=== PATIENT | male | born 1975 | race Caucasian/White ===

== ENCOUNTER 2023-03-12 10:35 | Emergency (ER) | payer BC, SELFPAY ==
[2023-03-12 10:38] VITALS: BP 135/84; PULSE 60; RESP 18; TEMP 36.7; O2SAT 98; BMI 34.4
--- NOTE | 2023-03-12 11:22 | ED.GENADUL1 ---
HPI - General Adult General Chief complaint: Skin/Abscess/Foreign Body Stated complaint: CELLULITIS Time Seen by Provider: 03/12/23 11:06 Source: patient and family Mode of arrival: walk-in History of Present Illness HPI narrative: patient here is swelling of both his legs. Patient describes having this problem already starting back in November. He's been does primary care doctor and was started on an antibiotic but is not sure which one. He does have rheumatoid arthritis but is not on any immunosuppressive therapy at this time. He's also noticed that he continues to have swelling of his legs. He does not have any shortness of breath or any type of dyspnea with any type of exertion. He has no history of heart problems. He is on a number meds as listed on his medical record. He said at one stage when they were treating this they put him on Lasix. He currently is not on any Lasix or antibiotic therapy. He has not had fever shakes or chills. He's not wearing support stockings, he doesn't elevate his legs and he works in an upright position standing most the day. Related Data Home Medications Medication Instructions Recorded Confirmed allopurinol 100 mg tablet 100 mg PO QDAY 03/12/23 03/12/23 amlodipine 10 mg tablet 10 mg PO 03/12/23 lisinopril 10 mg tablet 10 mg PO QDAY 03/12/23 03/12/23 nabumetone 750 mg tablet 750 mg PO BID 03/12/23 03/12/23 Allergies Allergy/AdvReac Type Severity Reaction Status Date / Time PCN AdvReac Intermediate Uncoded 03/12/23 10:38 PFS PFS Social History Smoking status: Current every day smoker Exam Narrative Exam Narrative: awake alert pleasant vital signs are stable he's afebrile. He states his legs really have never gotten better since he started treating him multiple weeks ago. Problem focused examination The leg show very mild warmth with 2+ pitting edema below the knees. There is good vascular pulses. There is no venous cords or ropiness in the thigh or hamstring area. The catheter nontender. There is no open wounds there is no weeping tissue fluid. Constitutional Vital Signs, click to edit/add: Last Vital Signs Temp 98.1 F 03/12/23 10:38 Pulse 60 03/12/23 10:38 Resp 18 03/12/23 10:38 BP 135/84 03/12/23 10:38 Pulse Ox 98 03/12/23 10:38 Course Vital Signs Vital signs: Vital Signs Temperature 98.1 F 03/12/23 10:38 Pulse Rate 60 03/12/23 10:38 Respiratory Rate 18 03/12/23 10:38 Blood Pressure 135/84 03/12/23 10:38 Pulse Oximetry 98 03/12/23 10:38 Temperature 98.1 F 03/12/23 10:38 Pulse Rate 60 03/12/23 10:38 Respiratory Rate 18 03/12/23 10:38 Blood Pressure 135/84 03/12/23 10:38 Pulse Oximetry 98 03/12/23 10:38 Medical Decision Making MDM Narrative Medical decision making narrative: this has ongoing problems that never really cleared up. His is somewhat frustrated because he doesn't follow all instructions. We went through the treatment recommendations as noted below. He's not have to keep these elevated compression stockings Lasix to help get rid of some the excess fluid which is probably due to medications. In any she has primary care practitioner on Tuesday or Tuesday of this week. He should return should he develop fever or get worseand I also did a lung examination he had no wheezes rales or rhonchi. Heart sounds were also normal with no evidence of atrial fibrillation and his pulse oximetry is normal. Discharge Plan Discharge Chief Complaint: Skin/Abscess/Foreign Body Clinical Impression: Cellulitis Patient Disposition: Home, Self-Care Time of Disposition Decision: 11:25 Prescriptions / Home Meds: No Action allopurinol 100 mg tablet 100 mg PO QDAY amlodipine 10 mg tablet 10 mg PO lisinopril 10 mg tablet 10 mg PO QDAY nabumetone 750 mg tablet 750 mg PO BID Additional Instructions: Lasix/doxycycline/cephalexin Stand Alone Forms: Portal Instructions Referrals: Physician,Non-Staff, MD [Primary Care Provider] - 1 week
== END 2023-03-12 11:31 | disposition home or self-care (01) ==
PROVIDERS: Emergency Provider Emergency Medicine Emergency Medical Services
DX: L03.116 Cellulitis of left lower limb (principal); L03.115 Cellulitis of right lower limb; M06.9 Rheumatoid arthritis, unspecified; Z79.899 Other long term (current) drug therapy; F17.210 Nicotine dependence, cigarettes, uncomplicated
CPT/HCPCS: 99283

== ENCOUNTER 2023-04-04 11:58 | Outpatient (OUT) | payer BC, SELFPAY ==
[2023-04-04 12:22] LABS: Basophils Absolute Auto 0.1 10^3/uL (0.0-0.1); Basophils Percent Auto 1.1 % (0.2-2.0); Eosinophils Absolute Auto 0.2 10^3/uL (0.0-0.7); Hemoglobin 13.8 g/dL (14.0-18.0); Immature Granulocytes Abs Auto 0.03 10^3/uL (0.00-0.03); Immature Granulocytes Pct Auto 0.4 % (0.0-0.5); Lymphocytes Absolute Auto 1.9 10^3/uL (1.2-3.8); Mean Corpuscular HGB Conc 33.7 g/dL (29.9-35.2); Mean Corpuscular Hemoglobin 32.4 pg (25.9-34.0); Mean Corpuscular Volume 96.2 fL (80.0-94.0); Mean Platelet Volume 9.9 fL (9.5-13.5); Monocytes Absolute Auto 0.4 10^3/uL (0.3-0.8); Monocytes Percent Auto 5.5 % (1.7-12.0); Neutrophils Absolute Auto 4.8 10^3/uL (1.4-6.5); Platelet Count 228 10^3/uL (150-450); Red Blood Count 4.26 10^6/uL (4.70-6.10); Red Cell Distribution Width 13.6 % (11.0-15.0); White Blood Count 7.4 10^3/uL (4.0-11.0)
[2023-04-04 13:12] LABS: Estimated Average Glucose 103 mg/dL; Glycohemoglobin A1C 5.2 % (4.5-6.2)
[2023-04-04 13:49] LABS: Alanine Aminotransferase 38 U/L (16-63); Albumin Globulin Ratio 1.1; Albumin Level 4.2 g/dL (3.4-5.0); Alkaline Phosphatase 105 U/L (46-116); Anion Gap 9.9; Aspartate Amino Transferase 18 U/L (15-37); Bilirubin Total 0.4 mg/dL (0.2-1.0); Calcium 8.8 mg/dL (8.5-10.1); Carbon Dioxide 29.2 mmol/L (21.0-32.0); Chloride 102 mmol/L (98-107); Chol HDL Ratio 4.9; Cholesterol 181 mg/dL (<=200); Estimated GFR (African America >60 (>=60); Estimated GFR (Non-African Ame >60 (>=60); Free T3 2.01 pg/mL (2.18-3.98); Globulin 3.7 g/dL; Glucose 100 mg/dL (74-106); HDL Cholesterol 37 mg/dL (40-60); Potassium 4.1 mmol/L (3.5-5.1); Sodium 137 mmol/L (136-145); Thyroid Stimulating Hormone 2.138 uIU/mL (0.358-3.740); Total Protein 7.9 g/dL (6.4-8.2); Triglycerides 191 mg/dL (<=150); Uric Acid 4.3 mg/dL (3.5-7.2); VLDL CHOLESTEROL 38.2 mg/dL
[2023-04-05 11:09] LABS: Insulin 6.7 uIU/mL (2.6-24.9)
== END 2023-04-04 11:59 | disposition home or self-care (01) ==
LOC: LAB 11:59
PROVIDERS: Visit Provider Nurse Practitioner Family
DX: Z00.00 Encounter for general adult medical examination without abnormal findings (principal)
CPT/HCPCS: 36415; 80053; 80061; 83036; 83525; 84436; 84443; 84481; 84550; 85025

== ENCOUNTER 2023-05-09 14:54 | Outpatient (OUT) | payer BC, SELFPAY ==
[2023-05-09 15:19] LABS: Basophils Absolute Auto 0.1 10^3/uL (0.0-0.1); Basophils Percent Auto 0.6 % (0.2-2.0); Eosinophils Absolute Auto 0.1 10^3/uL (0.0-0.7); Hematocrit 40.8 % (42.0-54.0); Hemoglobin 13.4 g/dL (14.0-18.0); Immature Granulocytes Abs Auto 0.07 10^3/uL (0.00-0.03); Immature Granulocytes Pct Auto 0.7 % (0.0-0.5); Lymphocytes Absolute Auto 2.8 10^3/uL (1.2-3.8); Lymphocytes Percent Auto 27.3 % (20.5-60.0); Mean Corpuscular HGB Conc 32.8 g/dL (29.9-35.2); Mean Corpuscular Hemoglobin 31.7 pg (25.9-34.0); Mean Corpuscular Volume 96.5 fL (80.0-94.0); Mean Platelet Volume 10.2 fL (9.5-13.5); Monocytes Absolute Auto 0.6 10^3/uL (0.3-0.8); Monocytes Percent Auto 5.7 % (1.7-12.0); Neutrophils Absolute Auto 6.6 10^3/uL (1.4-6.5); Neutrophils Percent Auto 64.7 % (43.0-75.0); Platelet Count 235 10^3/uL (150-450); Red Blood Count 4.23 10^6/uL (4.70-6.10); Red Cell Distribution Width 13.3 % (11.0-15.0); White Blood Count 10.3 10^3/uL (4.0-11.0)
[2023-05-09 15:23] LABS: Estimated Average Glucose 114 mg/dL; Glycohemoglobin A1C 5.6 % (4.5-6.2)
[2023-05-09 15:38] LABS: Alanine Aminotransferase 55 U/L (16-63); Albumin Globulin Ratio 1.3; Albumin Level 4.1 g/dL (3.4-5.0); Alkaline Phosphatase 87 U/L (46-116); Anion Gap 11.7; Aspartate Amino Transferase 26 U/L (15-37); BUN Creatinine Ratio 28.9; Bilirubin Total 0.6 mg/dL (0.2-1.0); Calcium 8.8 mg/dL (8.5-10.1); Carbon Dioxide 33.2 mmol/L (21.0-32.0); Chloride 98 mmol/L (98-107); Chol HDL Ratio 4.2; Cholesterol 205 mg/dL (<=200); Estimated GFR (African America >60 (>=60); Estimated GFR (Non-African Ame >60 (>=60); Free T3 2.35 pg/mL (2.18-3.98); Globulin 3.2 g/dL; Glucose 89 mg/dL (74-106); HDL Cholesterol 49 mg/dL (40-60); Potassium 3.9 mmol/L (3.5-5.1); Sodium 139 mmol/L (136-145); Total Protein 7.3 g/dL (6.4-8.2); Triglycerides 132 mg/dL (<=150); Uric Acid 5.3 mg/dL (3.5-7.2); VLDL CHOLESTEROL 26.4 mg/dL
[2023-05-10 13:10] LABS: Insulin 8.5 uIU/mL (2.6-24.9)
== END 2023-05-09 14:55 | disposition home or self-care (01) ==
LOC: LAB 14:54
PROVIDERS: Visit Provider Nurse Practitioner Family
DX: Z00.00 Encounter for general adult medical examination without abnormal findings (principal); R60.0 Localized edema
CPT/HCPCS: 36415; 80053; 80061; 83036; 83525; 84436; 84443; 84481; 84550; 85025

== ENCOUNTER 2023-05-18 13:57 | Outpatient (OUT) | payer BC, SELFPAY ==
--- NOTE | 2023-05-18 14:04 | US_ITS ---
The [address] [address] Patient Name: ROSARIO CROUCH MRN: [id number] date: 1975 Sex: M Assigned Patient Location: US Current Patient Location: Accession/Order Number: [id number] Exam Date: 05/18/2023 14:05 Report Date: 05/19/2023 02:51 At the request of: NON-STAFF PHYSICIAN Procedure: US venous doppler LE BI EXAMINATION: US venous doppler LE BI HISTORY: Lower Extremity Edema R60.0 COMPARISON: No relevant comparison available. FINDINGS: REGION: Bilateral lower extremities THROMBI: None. COMPRESSIBILITY: Normal compressibility. FLOW: Normal waveform and antegrade flow between 5 and 20 cm/s. OTHER: None. US/US venous doppler LE BI IMPRESSION: 1. No deep vein thrombus within the right or left lower extremity. Electronically authenticated by: SILVIA METZGER Date: 05/19/2023 02:51
== END 2023-05-18 13:58 | disposition home or self-care (01) ==
LOC: US 13:58
PROVIDERS: PCP Nurse Practitioner Family
DX: R60.0 Localized edema (principal)
CPT/HCPCS: 93970

== ENCOUNTER 2023-05-21 09:47 | Outpatient (OUT) | payer BC, SELFPAY ==
[2023-05-21 10:37] LABS: Erythrocyte Sedimentation Rate 18 mm/hr (<=15)
[2023-05-21 10:49] LABS: Thyroid Stimulating Hormone 1.628 uIU/mL (0.358-3.740)
[2023-05-23 12:11] LABS: Albumin 3.8 g/dL (2.9-4.4); Alpha-1-Globulin 0.2 g/dL (0.0-0.4); Alpha-2-Globulin 0.8 g/dL (0.4-1.0); Protein, Total 6.9 g/dL (6.0-8.5)
== END 2023-05-21 09:48 | disposition home or self-care (01) ==
LOC: LAB 09:49
PROVIDERS: PCP Nurse Practitioner Family; Visit Provider Psychiatry & Neurology Neurology
DX: R20.0 Anesthesia of skin (principal)
CPT/HCPCS: 36415; 82306; 82607; 82746; 84155; 84165; 84443; 85652

== ENCOUNTER 2023-10-28 15:48 | Emergency (ER) | payer BC, SELFPAY ==
[2023-10-28] VITALS (14 sets, daily range): BP systolic 122–150; BP diastolic 89–104; PULSE 60–74; TEMP 36.4; O2SAT 94–99
--- NOTE | 2023-10-28 15:56 | ECG_ITS ---
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
--- NOTE | 2023-10-28 16:07 | CT_ITS ---
The [address] [address] Patient Name: ROSARIO CROUCH MRN: [id number] date: 1975 Sex: M Assigned Patient Location: ER Current Patient Location: ER Accession/Order Number: [id number] Exam Date: 10/28/2023 16:15 Report Date: 10/28/2023 17:10 At the request of: RAYMOND HOBSON Procedure: CT angio neck CT angio neck HISTORY: AMS, neck pain COMPARISON: None. TECHNIQUE: Overlapping thin sections were obtained during a bolus of IV contrast from the aortic arch through the nez perce of [place]. Reconstruction of the source data set includes multiplanar 2D in the bilateral oblique planes, and 3D sagittal and coronal thin slab MIP series. Aircrewman images have been stored on PACS. Stenosis of the internal carotid arteries are calculated using NASCET criteria. One of the following dose optimization techniques was utilized in the performance of this exam: Automated exposure control; adjustment of the mA and/or kV according to the patient's size; or use of an iterative reconstruction technique. Specific details can be referenced in the facility's radiology CT exam operational policy. FINDINGS: Angiographic findings: Aortic arch and great vessels: Negative. Right CCA/ICA: Negative. Left CCA/ICA: Negative. Vertebrobasilar: Negative. [place] of [place]: Negative. Additional non-angiographic findings: None significant. CT/CT angio neck IMPRESSION: 1. No evidence of flow-limiting extracranial artery stenosis or dissection. Electronically authenticated by: CARI TROTTER Date: 10/28/2023 17:10
[2023-10-28 16:16] LABS: Basophils Absolute Auto 0.1 10^3/uL (0.0-0.1); Basophils Percent Auto 0.7 % (0.2-2.0); Eosinophils Absolute Auto 0.2 10^3/uL (0.0-0.7); Eosinophils Percent Auto 2.7 % (0.9-7.0); Hematocrit 41.2 % (42.0-54.0); Hemoglobin 13.6 g/dL (14.0-18.0); Immature Granulocytes Abs Auto 0.03 10^3/uL (0.00-0.03); Immature Granulocytes Pct Auto 0.4 % (0.0-0.5); Lymphocytes Percent Auto 23.1 % (20.5-60.0); Mean Corpuscular Hemoglobin 30.8 pg (25.9-34.0); Mean Corpuscular Volume 93.4 fL (80.0-94.0); Mean Platelet Volume 9.8 fL (9.5-13.5); Monocytes Absolute Auto 0.5 10^3/uL (0.3-0.8); Monocytes Percent Auto 5.5 % (1.7-12.0); Neutrophils Absolute Auto 5.8 10^3/uL (1.4-6.5); Neutrophils Percent Auto 67.6 % (43.0-75.0); Platelet Count 263 10^3/uL (150-450); Red Blood Count 4.41 10^6/uL (4.70-6.10); Red Cell Distribution Width 13.7 % (11.0-15.0); White Blood Count 8.6 10^3/uL (4.0-11.0)
--- OUTSIDE RECORDS SUMMARY | 2023-10-28 16:17 | XMS_ITS | CCD ---
Author Organization [facility] Care Team Providers Care Chute Tender Name Role Phone HOUSE, DR TRAN Primary Care Unavailable GRACY, DR ANDERSON Admitting Unavailable [place], DR YARELI Navarro Consulting Unavailable DUBOSE, DR ANDERSON Attending Unavailable DUBOSE, DR ANDERSON Consulting Unavailable AFTON, DR TRAN Admitting Unavailable AFTON, DR TRAN Attending Unavailable AFTON, DR TRAN Consulting Unavailable AFTON, DR TRAN Primary Care Unavailable HOUSE, DR TRAN Primary Care Unavailable HOUSE, DR TRAN Admitting Unavailable HOUSE, DR TRAN Attending Unavailable HOUSE, DR TRAN Consulting Unavailable LETY, CAPRI Referring Unavailable NONE, XXXX Primary Care Physician Unavailab Capri Balderas Attending Unavailable Lety, Capri Admitting Unavailable NOLFISABINA Referring Unavailable HOUSE, MARC Gunn Primary Care Unavailable Allergies Allergy Classification Reported Allergen(s) Allergy Type Date of Onset Reaction(s) Facility (2 sources) Penicillins; Translations: [PENICILLINS] Drug allergy (disorder) 08-27-2014 [facility] Repository Problems Problem Classification Problem Date Documented Da te Episodic/Chronic Gout and other crystal arthropathies (4 sources) Gout, unspecified; Translations: [GOUT UNSPECIFIED] Onset: 03-02-2022 Chronic Joint disorders and dislocations; trauma-related (4 sources) Other tear of medial meniscus, current injury, right knee, initial encounter; Translations: [OTH TEAR MED MENSC CUR RT KNEE INIT] Onset: 04-29-2022 Episodic Other non-traumatic joint disorders (4 sources) Other specified arthritis, unspecified site; Translations: [OTHER SPECIFIED ARTHRITIS UNS SITE] Onset: 09-25-2021 Chronic Other non-traumatic joint disorders (1 source) Pain in left ankle and joints of left foot; Translations: [Pain in left ankle and joints of left foot] Onset: 10-04-2023 Episodic Rheumatoid arthritis and related disease (1 source) Inflammatory polyarthropathy; Translations: [INFLAMMATORY POLYARTHROPATHY] Onset: 03-07-2022 Chronic Results Test Name Value Interpretation Reference Range Facility XR ANKLE LT MIN 3 VWSon 04-0 XR ANKLE LT MIN 3 VWS XR ANKLE LT MIN 3 VWS Left ankle: HISTORY: Ankle pain. 3 views left ankle were obtained. Calcaneal spurring noted. There is no acute osseous abnormality. No fracture appreciated. IMPRESSION: Calcaneal spurring Finalized by Terrance Vazquez MD on 10/04/2023 2:[address] [facility] XR FOOT LT MIN 3 VWSon 10-03 XR FOOT LT MIN 3 VWS XR FOOT LT MIN 3 VW S History: Pain after trauma Exam/Technique: Frontal lateral and oblique views of the left foot were obtained. Comparison: None Findings: There is no evidence for an acute osseous abnormality. No significant degenerative changes are seen. An enthesophyte seen arising from the plantar surface of the calcaneus. IMPRESSION: Normal left foot. Finalized by Yareli Mclain MD on 10/04/2023 2:[address] [facility] Consultation/Specialist Note on 08-08-2023 Consultation/Speciali st Note [id number] .00OTGTIFF [facility] CHEMISTRYOrdered By: SYSTEM SYSTEM on 07-04-2023 Total CK 143 [iU]/d Normal 14 - 261 Int._Unit/L Remisol Chem CKon 07-04-2023 Total CK 143 Int._Unit/L Normal 14-261 [facility] Comment on above: Performed By: #### 2 [id number] #### [facility] [address] [place] [address] Consent for Treatmenton Consent for Treatment [id number] .00TIFF Normal [facility] Physician Orderon 07-04-2023 Physician Order [id number]# 1.00TIFF Normal [facility] MR BRAIN W AND WO CONTRAST ( ROUTINE)on 06-01-2023 MR BRAIN W AND WO CONTRAST (ROUTINE) EXAMINATION: MR BRAIN W AND WO CONTRAST (ROUTINE) CLINICAL HISTORY: Anesthesia of skin COMPARISONS: None TECHNIQUE: Multiplanar multisequence images of the brain were obtained before and after IV administration of contrast. Diffusion perfusion imaging was obtained. BRAIN MRI FINDINGS: There are no extra-axial collections. There is no evidence of hemorrhage. There are no areas of perfusion diffusion signal abnormality to suggest ischemia. The susceptibility images do not demonstrate evidence of hemosiderin deposition within the brain parenchyma or the leptomeninges. There is preservation of the bhardwaj-white matter differentiation. There is a ill-defined approximately 3 cm area of increased T2/STIR signal in the subcortical white matter of the right frontal lobe without associated edema mass effect or enhancement. There are no areas of abnormal enhancement after IV contrast administration. There is mild prominence of the sulci and ventricles indicating chronic involutional changes and mild global cerebral atrophy. There is a an incidental extra-axial CSF equivalent 2.1 x 4.3 cm collection to the left of midline at the vertex. There is minimal mass effect on the adjacent brain parenchyma. This may represent a small arachnoid cyst. The midline structures are intact, the corpus callosum is within normal limits. The region of the pineal gland and the sella turcica are unremarkable. There are no space-occupying lesions in the posterior fossa. The basilar cisterns are patent. The craniocervical junction is unremarkable. The visualized portions of the orbits are within normal limits, the globes are intact. The visualized portions of the paranasal sinuses are within normal limits. The calvarium and soft tissues are unremarkable. IMPRESSION: There is no acute hemorrhage or ischemia. There is no abnormal enhancement after contrast. There is a 3 cm area of increased signal in the subcortical white matter of the right frontal lobe of uncertain etiology. The findings may be secondary to prior ischemia or angiopathy. There is an extra-axial collection at the vertex to the left of midline producing mild mass effect on the adjacent brain parenchyma consistent with an incidental arachnoid cyst. ELECTRONICALLY SIGNED BY: Huang Hu MD Normal Not Available [facility] CERVICAL SPINE W AND WO CONTRAST EXAM: MR CERVICAL SPINE W AND WO CONTRAST DATE: 06/01/2023 2:15 PM CLINICAL HISTORY: Anesthesia of skin. TECHNIQUE: Multiplanar multisequence images of cervical spine were obtained Before and after IV contrast ministration. COMPARISON: None available. FINDINGS: There is no acute fracture or subluxation. There is no loss of vertebral body height. The spine is in anatomic alignment, there is preservation of the lordotic curvature of the cervical spine. There is mild intervertebral disc extending at every level. The bone marrow signal is within normal limits. The cervical cord is normal in course and caliber without signal abnormality. There are no areas of abnormal enhancement after contrast. The visualized portions of the posterior fossa are within normal limits There is no prevertebral soft tissue swelling. There is a congenitally narrow spinal canal due to short pedicles. C2-C3: There is no disc herniation, central canal narrowing or neural foraminal narrowing. C3-C4: There is no dyskinesia or central canal narrowing. There is mild bilateral facet and uncovertebral joint hypertrophy and mild bilateral neural foraminal narrowing. C4-C5: There is a 2 mm disc bulge flattening the thecal sac and abutting the cord with mild narrowing of the central canal. There is mild bilateral facet and uncovertebral joint hypertrophy and moderate bilateral neural foraminal narrowing. C5-C6: There is a 2 mm disc bulge flattening the thecal sac and abutting the cord with mild narrowing of the central canal. There is mild bilateral facet and uncovertebral joint hypertrophy with moderate bilateral neural foraminal narrowing. C6-C7: There is a 2 mm disc bulge flattening the thecal sac and abutting the cord with mild narrowing of the central canal. There is mild bilateral facet and uncovertebral joint hypertrophy with moderate bilateral neural foraminal narrowing. C7-T1: There is a less than 2 mm disc bulge flattening the thecal sac but not abutting the cord without central canal narrowing. There is no neural foraminal narrowing. IMPRESSION: There are no acute changes. There is no abnormal enhancement after contrast. There is spondylosis of the cervical spine exacerbating a congenitally narrow spinal canal. ELECTRONICALLY SIGNED BY: Huang Hu MD Normal Not Available MRI KNEE RT WO CONon 022 MRI KNEE RT WO CON EXAMINATION: MRI KNE E RT WO CON HISTORY: Tear of meniscus of knee COMPARISON: No relevant comparison available. TECHNIQUE: A complete multi-planar MRI was performed. FINDINGS: MEDIAL COMPARTMENT MEDIAL MENISCUS: Thinned, macerated and extruded with absent body CARTILAGE: Moderate diffuse chondromalacia BONES: Moderate osteoarthropathy with marginal osteophyte formation MCL AND MEDIAL CAPSULE: Normal medial collateral ligament and medial capsule. LATERAL COMPARTMENT LATERAL MENISCUS: No visible tear or significant degeneration. CARTILAGE: Mild chondromalacia BONES: No marrow pathology, fracture, or significant arthropathy. LCL/POSTEROLAT COMPLEX: Normal lateral collateral ligament, fascicles, lateral capsule and ligaments. ANTERIOR COMPARTMENT PATELLA: No marrow pathology, fracture, or significant arthropathy. CARTILAGE: Moderate chondromalacia TENDONS: Normal. EFFUSION: Moderate joint effusion ACL: Normal appearing ligament. PCL: Normal appearing ligament. MENISCOFEMORAL: Normal meniscofemoral ligaments. OTHER: Negative. 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 Performed By: #### A NAIFA #### [facility] [address] [place] [address] Dr. Neo Harry CYCLIC CITRULLINATED PEPTIDE AB (CCP)on 03-04-2022 CCP Antibodies IgG/IgA 10 units Normal 0-19 [facility] Comment on above: Result Comment: Nega tive <20 Weak positive 20 - 39 Moderate positive 40 - 59 Strong positive >59 Performed By: #### C CPAB #### [facility] [address] [address] [address] Neo Harry LYME DISEASE AB EIA W REFLEX on 03-03-2022 Lyme Total Antibody,EIA Negative Normal Negative [facility] Comment on above: Result Comment: Lyme Antibody Negative No laboratory evidence of infection with B. burgdorferi (Lyme disease). Negative results may occur in patients recently infected (less than or equal to 14 days) with B. burgdorferi. If recent infection is suspected, repeat testing on a new sample collected in 7 to 14 days is recommended. Performed By: #### C BC #### [facility] [address] [place] [address] Dr. Neo Harry RHEUMATOID FACTORon 03-03-20 RA Latex Turbid. <10.0 Normal <14.0 [facility] Comment on above: Performed By: #### R F #### [facility] [address] [place] [address] Dr. Neo Harry SED RATE WESTERGRENon 2021 SED RATE 5 mm/hr Normal <=15 [facility] Comment on above: Performed By: #### S EDR #### [facility] [address] [place] [address] Dr. Neo Harry URIC ACID SERUMon 03-02-2022 Urate [Mass/Vol] 5.1 mg/dL Normal 3.5-7.2 [facility] Comment on above: Performed By: #### U YOON #### [facility] [address] [place] [address] Dr. Neo Harry CYCLIC CITRULLINATED PEPTIDE AB (CCP)on 09-29-2021 CCP Antibodies IgG/IgA 8 units Normal 0-19 [facility] Comment on above: Result Comment: Nega tive <20 Weak positive 20 - 39 Moderate positive 40 - 59 Strong positive >59 Performed By: #### C CPAB #### [facility] [address] [place] [address] Dr. Neo Harry LAST by IFAon 09-26-2021 Antinuclear Antibodies, IFA Negative Normal [facility] Comment on above: Result Comment: Nega tive <1:80 Borderline 1:80 Positive >1:80 ICAP nomenclature: AC-0 For more information about Hep-2 cell patterns use ANApatterns.org, the official website for the International Consensus on Antinuclear Antibody (LAST) Patterns (ICAP). Performed By: #### C BC #### [facility] [address] [place] [address] Dr. Neo Harry RHEUMATOID FACTORon 09-27-19 RA Latex Turbid. <10.0 Normal <14.0 [facility] Comment on above: Performed By: #### R F #### [facility] [address] [address] [address] Neo Harry CBC AUTO DIFFon 09-25-2021 BASO # 0.1 103/ul Normal 0.0-0.1 [facility] Comment on above: Performed By: #### C BC #### [facility] [address] [address] [address] Neo Harry Basophils/100 WBC (Bld) 0.8 % Normal 0.2-2.0 [facility] Comment on above: Performed By: #### C BC #### [facility] [address] [place] [address] Dr. Neo Harry EO # 0.3 103/ul Normal 0.0-0.7 [facility] Comment on above: Performed By: #### C BC #### [facility] [address] [place] [address] Dr. Neo Harry Eosinophils/100 WBC (Bld) 4.6 % Normal 0.9-7.0 [facility] Comment on above: Performed By: #### C BC #### [facility] [address] [place] [address] Dr. Neo Harry Erythrocyte distribution width (RBC) [Ratio] 13.5 % Normal 11.0-15.0 [facility] Comment on above: Performed By: #### C BC #### [facility] [address] [place] [address] Dr. Neo Harry Hematocrit (Bld) [Volume fraction] 43.7 % Normal 42.0-54.0 [facility] Comment on above: Performed By: #### C BC #### [facility] [address] [place] [address] Dr. Neo Harry Hemoglobin (Bld) [Mass/Vol] 14.5 g/dL Normal 14.0-18.0 [facility] Comment on above: Performed By: #### C BC #### [facility] [address] [place] [address] Dr. Neo Harry IG # 0.04 10e3/ul Critically high 0.00-0.03 [facility] Comment on above: Performed By: #### C BC #### [facility] [address] [place] [address] Dr. Neo Harry IG % 0.5 % Normal 0.0-0.5 [facility] Comment on above: Performed By: #### C BC #### [facility] [address] [place] [address] Dr. Neo Harry LYMPH # 2.0 103/ul Normal 1.2-3.8 [facility] Comment on above: Performed By: #### C BC #### [facility] [address] [place] [address] Dr. Neo Harry Lymphocytes/100 WBC (Bld) 27.1 % Normal 20.5-60.0 [facility] Comment on above: Performed By: #### C BC #### [facility] [address] [place] [address] Dr. Neo Harry MANUAL DIFF REQ NO Normal [facility] Comment on above: Performed By: #### C BC #### [facility] [address] [place] [address] Dr. Neo Harry MCH (RBC) [Entitic mass] 30.5 pg Normal 25.9-34.0 [facility] Comment on above: Performed By: #### C BC #### [facility] [address] [place] [address] Dr. Neo Harry MCHC (RBC) [Mass/Vol] 33.2 g/dL Normal 29.9-35.2 [facility] Comment on above: Performed By: #### C BC #### [facility] [address] [place] [address] Dr. Neo Harry MCV (RBC) [Entitic vol] 92.0 fL Normal 80.0-94.0 [facility] Comment on above: Performed By: #### C BC #### [facility] [address] [place] [address] Dr. Neo Harry MONO # 0.5 103/ul Normal 0.3-0.8 [facility] Comment on above: Performed By: #### C BC #### [facility] [address] [place] [address] Dr. Neo Harry Monocytes/100 WBC (Bld) 6.7 % Normal 1.7-12.0 [facility] Comment on above: Performed By: #### C BC #### [facility] [address] [place] [address] Dr. Neo Harry NEUT # 4.4 103/ul Normal 1.4-6.5 [facility] Comment on above: Performed By: #### C BC #### [facility] [address] [place] [address] Dr. Neo Harry Neutrophils/100 WBC (Bld) 60.3 % Normal 43.0-75.0 [facility] Comment on above: Performed By: #### C BC #### [facility] [address] [place] [address] Dr. Neo Harry Platelet mean volume (Bld) [Entitic vol] 9.7 fL Normal 9.5-13.5 [facility] Comment on above: Performed By: #### C BC #### [facility] [address] [place] [address] Dr. Neo Harry PLT 209 103/ul Normal 150-450 [facility] Comment on above: Performed By: #### C BC #### [facility] [address] [place] [address] Dr. Neo Harry RBC 4.75 106/ul Normal 4.70-6.10 [facility] Comment on above: Performed By: #### C BC #### [facility] [address] [place] [address] Dr. Neo Harry WBC 7.4 103/ul Normal 4.0-11.0 [facility] Comment on above: Performed By: #### C BC #### [facility] [address] [place] [address] Dr. Neo Harry [facility] SED RATE 4 mm/hr Normal <=15 [facility] Comment on above: Performed By: #### S EDR #### [facility] [address] [place], [place] [address] Dr. Neo Harry URIC ACID SERUMon 09-25-2021 Urate [Mass/Vol] 7.5 mg/dL Normal 3.5-8.5 [facility] Comment on above: Performed By: #### U YOON #### [facility] [address] [place], [place] [address] Dr. Neo Harry Encounters Encounter Date Encounter Type Care Provider Facility Start: 10-04-2023 End: 10-08-2023 ambulatory SABINA DIAZ [facility] Start: 07-04-2023 End: 07-05-2023 ambulatory Capri Davidson Facility:[facility] Start: 07-04-2023 End: 07-04-2023 Patient encounter procedure Capri Davidson [facility] Start: 06-01-2023 End: 06-02-2023 ambulatory CAPRI DAVIDSON Not Available Start: 04-29-2022 End: 04-30-[address] MARC RENEE Facility:[facility] Start: 03-02-2022 End: 03-03-[address] MARC RENEE Facility:[facility] Start: 09-25-2021 End: 09-26-[address] MARC RENEE Facility:[facility] Payers Date Payer Category Payer Unknown [id number] 2.16.84 [id number] 1975 Unknown [id number] [id number] [id number] 1973 Unknown [id number] 2.16.84 [id number] 1973 Unknown [id number] 1973 Unknown [id number] 1973 Unknown [id number] 2.16.8 [id number] 1959 Unknown [id number] Social History Date Type Detail Facility Tobacco smoking status No Smoking Status Entered [facility] Sex Assigned At Male [facility] Evaluation + Plan note 07-04-2023 Note Date & Type Note Facility 07-04-2023 Evaluation + Plan note Diagnostic Tests PendingHeavy Metal Prof II 07/04/23Lyme Antibodies w/rflx to IgG/IgM 07/04/23Copper Level 07/04/23Methylmalonic Acid 07/04/23 [facility] Hospital course Narrative Note Date & Type Note Facility Hospital course Narrative No data available for this section [facility] Hospital Discharge instructions Note Date & Type Note Facility Hospital Discharge instructions No data available for this section [facility] Progress note Note Date & Type Note Facility Progress note No data available for this section [facility] Summary Purpose Family History No Family History Records FoundNo Family History Records Found No data available for this section No Family History Records FoundNo Family History Records FoundNo Family History Records Found Advance Directives No Advanced Directives Records FoundNo Advanced Directives Records FoundNo Advanced Directives Records FoundNo Advanced Directives Records FoundNo Advanced Directives Records Found Additional Source Comments (unrecognized sect ion and content) No Status Records FoundNo Status Records FoundNo Status Records FoundNo Status Records FoundNo Status Records Found INFORMATION SOURCE (unrecogn ized section and content) DATE CREATED AUTHOR 07/27/2022 [facility] DATE CREATED AUTHOR AUTHOR'S ORGANIZ ATION 06/06/[address] [facility] DATE CREATED AUTHOR AUTHOR'S ORGANIZ ATION 07/05/2023 [facility] DATE CREATED AUTHOR AUTHOR'S ORGANIZ ATION 08/09/2023 [facility] DATE CREATED AUTHOR AUTHOR'S ORGANIZ ATION 10/09/2023 [facility] FOR RECORDS PERTAINING TO PATIENTS WHO ARE OR HAVE BEEN ENROLLED IN A CHEMICAL DEPENDENCY/SUBSTANCEABUSE PROGRAM, SOME INFORMATION MAY BE OMITTED. This clinical summary was aggregated from multiple sources. Caution should be exercised in using it in the provision of clinical care. This summary normalizes information from multiple sources, and as a consequence, information in this document may materially change the coding, format and clinical context of patient data. In addition, data may be omitted in some cases. CLINICAL DECISIONS SHOULD BE BASED ON THE PRIMARY CLINICAL RECORDS. [facility]. provides no warranty or guarantee of the accuracy or completeness of information in this document.
--- NOTE | 2023-10-28 16:18 | ED_ITS ---
Documented by User: Ken Piedra MD 10/28/23 16:29 HPI HPI - General Adult General Chief complaint: Weakness Stated complaint: Possible cva Time Seen by Provider: 10/28/23 15:56 Source: patient Mode of arrival: Wheelchair History of Present Illness HPI narrative: 48-year-old male to the emergency department with chief complaint of altered mental status. Patient is accompanied by his Daughter who is the primary historian. Daughter reports that he ate some lunch and took his medications sometime Shortly before 1 PM When he woke up from his nap he was behaving strangely. This was around 3:30 PM. Patient Review of had a strange look on his face and could not stand up. His daughter was able to get him in the car and bring him to the emergency department. She reports that he has a history of bipolar disorder on several medications. He has a history of marijuana use but she believes he has been sober for one month. Patient reports that his whole body feels heavy, he reports he feels like he is moving in slow motion. He denies any vision changes. He denies any recent falls or injuries. He reports that he has had some sneezing, coughing, itchy eyes when she believes is caused by pollen. In appointment with his primary care doctor scheduled for later this afternoon which he missed. He denies any use. Daughter reports this has never happened before. Related Data Home Medications ?Medication ?Instructions ?Recorded ?Confirmed allopurinol 100 mg tablet 100 mg PO QPM 03/12/23 10/28/23 amlodipine 10 mg tablet 10 mg PO DAILY 03/12/23 10/28/23 allopurinol 300 mg tablet 300 mg PO QAM 10/28/23 10/28/23 diclofenac sodium 75 mg 75 mg PO BID 10/28/23 10/28/23 tablet,delayed release ferrous fumarate 325 mg (106 mg 325 mg PO DAILY 10/28/23 10/28/23 iron) tablet gabapentin 300 mg capsule 300 mg PO BID 10/28/23 10/28/23 hydrochlorothiazide 25 mg tablet 25 mg PO QAM 10/28/23 10/28/23 lisinopril 20 mg tablet 20 mg PO .QD 10/28/23 10/28/23 pantoprazole 40 mg tablet,delayed 40 mg PO Q12H 10/28/23 10/28/23 release sertraline 50 mg tablet 50 mg PO DAILY 10/28/23 10/28/23 Allergies Allergy/AdvReac Type Severity Reaction Status Date / Time PCN AdvReac Intermediate Uncoded 03/12/23 10:38 Opioid HPI Opioid Management Most Recent Opioid Data: Ur Phencyclidine Scrn Negative (NEGATIVE) 10/28/23 19:07 Review of Systems ROS Status of ROS 10 or more systems reviewed and unremark able except as noted in history and below PFSH PFS Social History Smoking status: Current every day smoker Exam Narrative Exam Narrative: VITALS: I have reviewed the triage vital signs. GENERAL: Adult male lying in bed in no obvious distress NEURO: Alert and oriented x4. Moves all extremities. Face is symmetric and expressive. Cranial nerves II through XII grossly intact as tested. Muscular strength and sensation grossly intact upper and lower extremities bilaterally. No dysarthria. No aphasia. No ataxia. Normal gait. NIHSS 1, scores only for bilateral subjective sensation change. EYES: PERRL. No scleral icterus or conjunctival injection. No discharge. HENT: Normocephalic, atraumatic. Hearing is grossly intact. Nares grossly patent and without discharge. Mucous membranes moist. NECK: No JVD. Patient moves neck without restriction. CARDIO: Rhythm regular. Normal rate. No murmur, rub, or gallop. Pulses equal bilaterally in the upper and lower extremity. No lower extremity edema. PULM: Lungs clear to auscultation in all jaime. No wheezes, rales, or rhonchi. No conversational dyspnea. No splinting, stridor, or accessory muscle use. GI/: Abdomen is soft and non-tender. Normoactive bowel sounds. EXTREMITIES: Symmetric muscle bulk. No joint swelling. No clubbing, cyanosis, or deformity. SKIN: Warm and dry. Normal turgor. No rash or lesions appreciated. PSYCH: Bizarre affect Constitutional Vital Signs, click to edit/add: Last Vital Signs Temp 97.5 F L 10/28/23 15:54 Pulse 71 10/28/23 19:31 Resp 16 10/28/23 19:31 BP 143/89 H 10/28/23 19:31 Pulse Ox 96 10/28/23 19:31 O2 Del Method Room Air 10/28/23 15:54 Course Vital Signs Vital signs: Vital Signs Temperature 97.5 F L 10/28/23 15:54 Pulse Rate 70 10/28/23 15:54 Respiratory Rate 16 10/28/23 15:54 Blood Pressure 122/91 10/28/23 15:54 Pulse Oximetry 95 10/28/23 15:54 Oxygen Delivery Method Room Air 10/28/23 15:54 Temperature 97.5 F L 10/28/23 15:54 Pulse Rate 71 10/28/23 19:31 Respiratory Rate 16 10/28/23 19:31 Blood Pressure 143/89 H 10/28/23 19:31 Pulse Oximetry 96 10/28/23 19:31 Oxygen Delivery Method Room Air 10/28/23 15:54 Medical Decision Making MDM Narrative Medical decision making narrative: 48-year-old male to the emergency department she complained of not feeling well/altered mental status. Vital stable, the patient is afebrile. I helped attend to the patient out of his vehicle in the parking lot. He was able to stand and pivot out of the vehicle. He was brought back to the room in a wheelchair and was able to get out of the wheelchair into the bed on his own. Patient has a bizarre affect but responsive questions appropriately. He has normal pupils and response but his Conjunctiva are bloodshot. Sensation is intact bilaterally in the upper and lower extremities and face to soft touch. Patient reports with touch in his whole body feels strange . Patient reports that his whole body feels heavy. When asked to lift his legs he says he cant but on his own volition is able to do so without any difficulty. Strength is intact throughout. Did begin to complain of some neck pain during my exam. Patient with bizarre presentation. Does not appear to localize as a stroke. Does not appear too be opiate toxidrome. Concern for hallucinogenic/ cannabinoid toxidrome. CT head is ordered to rule out acute intracranial hemorrhage. CT angiogram is ordered to rule out dissection based on his neck pain and neurologic complaints. His labs are ordered. Urine drug screen is ordered. Medical Records Medical records reviewed: Yes I reviewed the patient's medical records Lab Data Labs: Lab Results 10/28/23 10/28/23 10/28/23 Range/Units 16:00 16:04 16:48 WBC 8.6 (4.0-11.0) 10^3/uL RBC 4.41 L (4.70-6.10) 10^6/uL Hgb 13.6 L (14.0-18.0) g/dL Hct 41.2 L (42.0-54.0) % MCV 93.4 (80.0-94.0) fL MCH 30.8 (25.9-34.0) pg MCHC 33.0 (29.9-35.2) g/dL RDW 13.7 (11.0-15.0) % Plt Count 263 (150-450) 10^3/uL MPV 9.8 (9.5-13.5) fL Neut % (Auto) 67.6 (43.0-75.0) % Lymph % (Auto) 23.1 (20.5-60.0) % [place] % (Auto) 5.5 (1.7-12.0) % Eos % (Auto) 2.7 (0.9-7.0) % Baso % (Auto) 0.7 (0.2-2.0) % Neut # (Auto) 5.8 (1.4-6.5) 10^3/uL Lymph # (Auto) 2.0 (1.2-3.8) 10^3/uL [place] # (Auto) 0.5 (0.3-0.8) 10^3/uL Eos # (Auto) 0.2 (0.0-0.7) 10^3/uL Baso # (Auto) 0.1 (0.0-0.1) 10^3/uL Abs Immat Gran (auto) 0.03 (0.00-0.03) 10^3/uL Imm/Tot Granulo (auto) 0.4 (0.0-0.5) % PT 10.2 (9.0-11.6) sec INR 0.96 Sodium 135 L (136-145) mmol/L Potassium 3.2 L (3.5-5.1) mmol/L Chloride 102 (98-107) mmol/L Carbon Dioxide 27.6 (21.0-32.0) mmol/L Anion Gap 8.6 BUN 16.0 (7.0-18.0) mg/dL Creatinine 1.03 (0.70-1.30) mg/dL Est GFR ( Amer) >60 (>=60) Est GFR (Non-Af Amer) >60 (>=60) BUN/Creatinine Ratio 15.5 Glucose 109 H (74-106) mg/dL Lactate 1.2 (0.4-2.0) mmol/L Calcium 8.7 (8.5-10.1) mg/dL Total Bilirubin 0.3 (0.2-1.0) mg/dL AST 21 (15-37) U/L ALT 36 (16-63) U/L Alkaline Phosphatase 103 (46-116) U/L Ammonia 26 (11-32) umol/L Troponin I High Sens 7.0 (4.0-76.1) pg/mL Total Protein 7.1 (6.4-8.2) g/dL Albumin 3.6 (3.4-5.0) g/dL Globulin 3.5 g/dL Albumin/Globulin Ratio 1.0 Urine Color (YELLOW) Urine Clarity (CLEAR) Urine pH (5.0-9.0) Ur Specific [place] (1.005-1.025) Urine Protein (NEG/TRACE) mg/dL Urine Glucose (UA) (NEGATIVE) mg/dL Urine Ketones (NEGATIVE) mg/dL Urine Occult Blood (NEGATIVE) Urine Nitrite (NEGATIVE) Urine Bilirubin (NEGATIVE) Urine Urobilinogen (0.2-1.0) EU/dL Ur Leukocyte Esterase (NEGATIVE) Urine Opiates Screen (NEGATIVE) Ur Buprenorphine Scrn (NEGATIVE) Ur Oxycodone Screen (NEGATIVE) Urine Methadone Screen (NEGATIVE) Ur Barbiturates Screen (NEGATIVE) U Tricyclic Antidepress (NEGATIVE) Ur Phencyclidine Scrn (NEGATIVE) Ur Amphetamines Screen (NEGATIVE) U Methamphetamines Scrn (NEGATIVE) U Benzodiazepines Scrn (NEGATIVE) Urine Cocaine Screen (NEGATIVE) U Cannabinoids Screen (NEGATIVE) Ethanol Quant <3 mg/dL POC Glucose 89 (74-106) mg/dL 10/28/23 Range/Units 19:07 WBC (4.0-11.0) 10^3/uL RBC (4.70-6.10) 10^6/uL Hgb (14.0-18.0) g/dL Hct (42.0-54.0) % MCV (80.0-94.0) fL MCH (25.9-34.0) pg MCHC (29.9-35.2) g/dL RDW (11.0-15.0) % Plt Count (150-450) 10^3/uL MPV (9.5-13.5) fL Neut % (Auto) (43.0-75.0) % Lymph % (Auto) (20.5-60.0) % [place] % (Auto) (1.7-12.0) % Eos % (Auto) (0.9-7.0) % Baso % (Auto) (0.2-2.0) % Neut # (Auto) (1.4-6.5) 10^3/uL Lymph # (Auto) (1.2-3.8) 10^3/uL [place] # (Auto) (0.3-0.8) 10^3/uL Eos # (Auto) (0.0-0.7) 10^3/uL Baso # (Auto) (0.0-0.1) 10^3/uL Abs Immat Gran (auto) (0.00-0.03) 10^3/uL Imm/Tot Granulo (auto) (0.0-0.5) % PT (9.0-11.6) sec INR Sodium (136-145) mmol/L Potassium (3.5-5.1) mmol/L Chloride (98-107) mmol/L Carbon Dioxide (21.0-32.0) mmol/L Anion Gap BUN (7.0-18.0) mg/dL Creatinine (0.70-1.30) mg/dL Est GFR ( Amer) (>=60) Est GFR (Non-Af Amer) (>=60) BUN/Creatinine Ratio Glucose (74-106) mg/dL Lactate (0.4-2.0) mmol/L Calcium (8.5-10.1) mg/dL Total Bilirubin (0.2-1.0) mg/dL AST (15-37) U/L ALT (16-63) U/L Alkaline Phosphatase (46-116) U/L Ammonia (11-32) umol/L Troponin I High Sens (4.0-76.1) pg/mL Total Protein (6.4-8.2) g/dL Albumin (3.4-5.0) g/dL Globulin g/dL Albumin/Globulin Ratio Urine Color Lt. yellow (YELLOW) Urine Clarity Clear (CLEAR) Urine pH 6.5 (5.0-9.0) Ur Specific [place] 1.010 (1.005-1.025) Urine Protein Negative (NEG/TRACE) mg/dL Urine Glucose (UA) Negative (NEGATIVE) mg/dL Urine Ketones Negative (NEGATIVE) mg/dL Urine Occult Blood Negative (NEGATIVE) Urine Nitrite Negative (NEGATIVE) Urine Bilirubin Negative (NEGATIVE) Urine Urobilinogen 1.0 (0.2-1.0) EU/dL Ur Leukocyte Esterase Negative (NEGATIVE) Urine Opiates Screen Negative (NEGATIVE) Ur Buprenorphine Scrn Negative (NEGATIVE) Ur Oxycodone Screen Negative (NEGATIVE) Urine Methadone Screen Negative (NEGATIVE) Ur Barbiturates Screen Negative (NEGATIVE) U Tricyclic Antidepress Negative (NEGATIVE) Ur Phencyclidine Scrn Negative (NEGATIVE) Ur Amphetamines Screen Negative (NEGATIVE) U Methamphetamines Scrn Negative (NEGATIVE) U Benzodiazepines Scrn Negative (NEGATIVE) Urine Cocaine Screen Negative (NEGATIVE) U Cannabinoids Screen Positive A (NEGATIVE) Ethanol Quant mg/dL POC Glucose (74-106) mg/dL Imaging Data Chest x-ray: Radiologist's impression: ITS Impressions Neck CTA 10/28/23 16:07 IMPRESSION: 1. No evidence of flow-limiting extracranial artery stenosis or dissection. Electronically authenticated by: CARI TROTTER Date: 10/28/2023 17:[address] 10/28/23 16:22 IMPRESSION: No acute intracranial pathology. Electronically authenticated by: EJ CRAWFORD Date: 10/28/2023 16:34 Chest X-Ray 10/28/23 16:34 IMPRESSION: No acute infiltrate or evidence of cardiac decompensation. Electronically authenticated by: PORTER PANDYA Date: 10/28/2023 16:43 Head CTA 10/28/23 16:34 IMPRESSION: 1. No evidence of proximal large vessel occlusion, flow-limiting intracranial stenosis or aneurysm. Electronically authenticated by: CARI TROTTER Date: 10/28/2023 17:10 ECG Data Attestation: I personally reviewed and interpreted this ECG as follows: (Rate 70. NSR. Normal QTC. ) Discharge Plan Discharge Stand Alone Forms: Portal Instructions Chief Complaint: Weakness Clinical Impression: Altered mental status, Generalized weakness Patient Disposition: Home, Self-Care Time of Disposition Decision: 19:53 Condition: Good Mode of Transportation: Private Vehicle Prescriptions / Home Meds: No Action allopurinol 300 mg tablet 300 mg PO QAM Rx Instructions: 300 MG AM AND 100 MG PM lisinopril 20 mg tablet 20 mg PO .QD pantoprazole 40 mg tablet,delayed release (DR/EC) 40 mg PO Q12H gabapentin 300 mg capsule 300 mg PO BID diclofenac sodium 75 mg tablet,delayed release (DR/EC) 75 mg PO BID hydrochlorothiazide 25 mg tablet 25 mg PO QAM sertraline 50 mg tablet 50 mg PO DAILY ferrous fumarate 325 mg (106 mg iron) tablet 325 mg PO DAILY allopurinol 100 mg tablet 100 mg PO QPM amlodipine 10 mg tablet 10 mg PO DAILY Print Language: South [place] Instructions: Weakness (ED), Altered Mental Status (ED) Additional Instructions: Follow-up with PCP Referrals: MICHAEL MONTGOMERY [Primary Care Provider] - 1 week Documented by User: Venancio Cornejo MD 10/28/23 19:58 HPI HPI - General Adult General Chief complaint: Weakness Stated complaint: Possible cva Time Seen by Provider: 10/28/23 15:56 Related Data Home Medications ?Medication ?Instructions ?Recorded ?Confirmed allopurinol 100 mg tablet 100 mg PO QPM 03/12/23 10/28/23 amlodipine 10 mg tablet 10 mg PO DAILY 03/12/23 10/28/23 allopurinol 300 mg tablet 300 mg PO QAM 10/28/23 10/28/23 diclofenac sodium 75 mg 75 mg PO BID 10/28/23 10/28/23 tablet,delayed release ferrous fumarate 325 mg (106 mg 325 mg PO DAILY 10/28/23 10/28/23 iron) tablet gabapentin 300 mg capsule 300 mg PO BID 10/28/23 10/28/23 hydrochlorothiazide 25 mg tablet 25 mg PO QAM 10/28/23 10/28/23 lisinopril 20 mg tablet 20 mg PO .QD 10/28/23 10/28/23 pantoprazole 40 mg tablet,delayed 40 mg PO Q12H 10/28/23 10/28/23 release sertraline 50 mg tablet 50 mg PO DAILY 10/28/23 10/28/23 Allergies Allergy/AdvReac Type Severity Reaction Status Date / Time PCN AdvReac Intermediate Uncoded 03/12/23 10:38 Opioid HPI Opioid Management Most Recent Opioid Data: Ur Phencyclidine Scrn Negative (NEGATIVE) 10/28/23 19:07 PFSH PFSH Social History Smoking status: Current every day smoker Exam Constitutional Vital Signs, click to edit/add: Last Vital Signs Temp 97.5 F L 10/28/23 15:54 Pulse 71 10/28/23 19:31 Resp 16 10/28/23 19:31 BP 143/89 H 10/28/23 19:31 Pulse Ox 96 10/28/23 19:31 O2 Del Method Room Air 10/28/23 15:54 Course Vital Signs Vital signs: Vital Signs Temperature 97.5 F L 10/28/23 15:54 Pulse Rate 70 10/28/23 15:54 Respiratory Rate 16 10/28/23 15:54 Blood Pressure 122/91 10/28/23 15:54 Pulse Oximetry 95 10/28/23 15:54 Oxygen Delivery Method Room Air 10/28/23 15:54 Temperature 97.5 F L 10/28/23 15:54 Pulse Rate 71 10/28/23 19:31 Respiratory Rate 16 10/28/23 19:31 Blood Pressure 143/89 H 10/28/23 19:31 Pulse Oximetry 96 10/28/23 19:31 Oxygen Delivery Method Room Air 10/28/23 15:54 Medical Decision Making [facility] Narrative Medical decision making narrative: 48-year-old male to the emergency department she complained of not feeling well/altered mental status. Vital stable, the patient is afebrile. I helped attend to the patient out of his vehicle in the parking lot. He was able to stand and pivot out of the vehicle. He was brought back to the room in a wheelchair and was able to get out of the wheelchair into the bed on his own. Patient has a bizarre affect but responsive questions appropriately. He has normal pupils and response but his Conjunctiva are bloodshot. Sensation is intact bilaterally in the upper and lower extremities and face to soft touch. Patient reports with touch in his whole body feels strange . Patient reports that his whole body feels heavy. When asked to lift his legs he says he cant but on his own volition is able to do so without any difficulty. Strength is intact throughout. Did begin to complain of some neck pain during my exam. Patient with bizarre presentation. Does not appear to localize as a stroke. Does not appear too be opiate toxidrome. Concern for hallucinogenic/ cannabinoid toxidrome. CT head is ordered to rule out acute intracranial hemorrhage. CT angiogram is ordered to rule out dissection based on his neck pain and neurologic complaints. His labs are ordered. Urine drug screen is ordered. JK 8:00 PM urinalysis is negative, urine drug screen is positive for cannabinoids and the patient states that she has not smoked marijuana in 25 days. CTA head and neck are both negative as well. He appears to be asymptomatic at this point and is able to be discharged home. Treatment diagnosis and follow-up were discussed with the patient and his . Differential Diagnosis Differential Diagnosis: Stroke, dehydration, anemia, electrolyte imbalance, substance abuse Lab Data Lab results reviewed: Yes I reviewed the patient's lab results Labs: Lab Results 10/28/23 10/28/23 10/28/23 Range/Units 16:00 16:04 16:48 WBC 8.6 (4.0-11.0) 10^3/uL RBC 4.41 L (4.70-6.10) 10^6/uL Hgb 13.6 L (14.0-18.0) g/dL Hct 41.2 L (42.0-54.0) % MCV 93.4 (80.0-94.0) fL MCH 30.8 (25.9-34.0) pg MCHC 33.0 (29.9-35.2) g/dL RDW 13.7 (11.0-15.0) % Plt Count 263 (150-450) 10^3/uL MPV 9.8 (9.5-13.5) fL Neut % (Auto) 67.6 (43.0-75.0) % Lymph % (Auto) 23.1 (20.5-60.0) % [place] % (Auto) 5.5 (1.7-12.0) % Eos % (Auto) 2.7 (0.9-7.0) % Baso % (Auto) 0.7 (0.2-2.0) % Neut # (Auto) 5.8 (1.4-6.5) 10^3/uL Lymph # (Auto) 2.0 (1.2-3.8) 10^3/uL [place] # (Auto) 0.5 (0.3-0.8) 10^3/uL Eos # (Auto) 0.2 (0.0-0.7) 10^3/uL Baso # (Auto) 0.1 (0.0-0.1) 10^3/uL Abs Immat Gran (auto) 0.03 (0.00-0.03) 10^3/uL Imm/Tot Granulo (auto) 0.4 (0.0-0.5) % PT 10.2 (9.0-11.6) sec INR 0.96 Sodium 135 L (136-145) mmol/L Potassium 3.2 L (3.5-5.1) mmol/L Chloride 102 (98-107) mmol/L Carbon Dioxide 27.6 (21.0-32.0) mmol/L Anion Gap 8.6 BUN 16.0 (7.0-18.0) mg/dL Creatinine 1.03 (0.70-1.30) mg/dL Est GFR ( Amer) >60 (>=60) Est GFR (Non-Af Amer) >60 (>=60) BUN/Creatinine Ratio 15.5 Glucose 109 H (74-106) mg/dL Lactate 1.2 (0.4-2.0) mmol/L Calcium 8.7 (8.5-10.1) mg/dL Total Bilirubin 0.3 (0.2-1.0) mg/dL AST 21 (15-37) U/L ALT 36 (16-63) U/L Alkaline Phosphatase 103 (46-116) U/L Ammonia 26 (11-32) umol/L Troponin I High Sens 7.0 (4.0-76.1) pg/mL Total Protein 7.1 (6.4-8.2) g/dL Albumin 3.6 (3.4-5.0) g/dL Globulin 3.5 g/dL Albumin/Globulin Ratio 1.0 Urine Color (YELLOW) Urine Clarity (CLEAR) Urine pH (5.0-9.0) Ur Specific [place] (1.005-1.025) Urine Protein (NEG/TRACE) mg/dL Urine Glucose (UA) (NEGATIVE) mg/dL Urine Ketones (NEGATIVE) mg/dL Urine Occult Blood (NEGATIVE) Urine Nitrite (NEGATIVE) Urine Bilirubin (NEGATIVE) Urine Urobilinogen (0.2-1.0) EU/dL Ur Leukocyte Esterase (NEGATIVE) Urine Opiates Screen (NEGATIVE) Ur Buprenorphine Scrn (NEGATIVE) Ur Oxycodone Screen (NEGATIVE) Urine Methadone Screen (NEGATIVE) Ur Barbiturates Screen (NEGATIVE) U Tricyclic Antidepress (NEGATIVE) Ur Phencyclidine Scrn (NEGATIVE) Ur Amphetamines Screen (NEGATIVE) U Methamphetamines Scrn (NEGATIVE) U Benzodiazepines Scrn (NEGATIVE) Urine Cocaine Screen (NEGATIVE) U Cannabinoids Screen (NEGATIVE) Ethanol Quant <3 mg/dL POC Glucose 89 (74-106) mg/dL 10/28/23 Range/Units 19:07 WBC (4.0-11.0) 10^3/uL RBC (4.70-6.10) 10^6/uL Hgb (14.0-18.0) g/dL Hct (42.0-54.0) % MCV (80.0-94.0) fL MCH (25.9-34.0) pg MCHC (29.9-35.2) g/dL RDW (11.0-15.0) % Plt Count (150-450) 10^3/uL MPV (9.5-13.5) fL Neut % (Auto) (43.0-75.0) % Lymph % (Auto) (20.5-60.0) % [place] % (Auto) (1.7-12.0) % Eos % (Auto) (0.9-7.0) % Baso % (Auto) (0.2-2.0) % Neut # (Auto) (1.4-6.5) 10^3/uL Lymph # (Auto) (1.2-3.8) 10^3/uL [place] # (Auto) (0.3-0.8) 10^3/uL Eos # (Auto) (0.0-0.7) 10^3/uL Baso # (Auto) (0.0-0.1) 10^3/uL Abs Immat Gran (auto) (0.00-0.03) 10^3/uL Imm/Tot Granulo (auto) (0.0-0.5) % PT (9.0-11.6) sec INR Sodium (136-145) mmol/L Potassium (3.5-5.1) mmol/L Chloride (98-107) mmol/L Carbon Dioxide (21.0-32.0) mmol/L Anion Gap BUN (7.0-18.0) mg/dL Creatinine (0.70-1.30) mg/dL Est GFR ( Amer) (>=60) Est GFR (Non-Af Amer) (>=60) BUN/Creatinine Ratio Glucose (74-106) mg/dL Lactate (0.4-2.0) mmol/L Calcium (8.5-10.1) mg/dL Total Bilirubin (0.2-1.0) mg/dL AST (15-37) U/L ALT (16-63) U/L Alkaline Phosphatase (46-116) U/L Ammonia (11-32) umol/L Troponin I High Sens (4.0-76.1) pg/mL Total Protein (6.4-8.2) g/dL Albumin (3.4-5.0) g/dL Globulin g/dL Albumin/Globulin Ratio Urine Color Lt. yellow (YELLOW) Urine Clarity Clear (CLEAR) Urine pH 6.5 (5.0-9.0) Ur Specific [place] 1.010 (1.005-1.025) Urine Protein Negative (NEG/TRACE) mg/dL Urine Glucose (UA) Negative (NEGATIVE) mg/dL Urine Ketones Negative (NEGATIVE) mg/dL Urine Occult Blood Negative (NEGATIVE) Urine Nitrite Negative (NEGATIVE) Urine Bilirubin Negative (NEGATIVE) Urine Urobilinogen 1.0 (0.2-1.0) EU/dL Ur Leukocyte Esterase Negative (NEGATIVE) Urine Opiates Screen Negative (NEGATIVE) Ur Buprenorphine Scrn Negative (NEGATIVE) Ur Oxycodone Screen Negative (NEGATIVE) Urine Methadone Screen Negative (NEGATIVE) Ur Barbiturates Screen Negative (NEGATIVE) U Tricyclic Antidepress Negative (NEGATIVE) Ur Phencyclidine Scrn Negative (NEGATIVE) Ur Amphetamines Screen Negative (NEGATIVE) U Methamphetamines Scrn Negative (NEGATIVE) U Benzodiazepines Scrn Negative (NEGATIVE) Urine Cocaine Screen Negative (NEGATIVE) U Cannabinoids Screen Positive A (NEGATIVE) Ethanol Quant mg/dL POC Glucose (74-106) mg/dL Imaging Data Chest x-ray: Radiologist's impression: ITS Impressions Neck CTA 10/28/23 16:07 IMPRESSION: 1. No evidence of flow-limiting extracranial artery stenosis or dissection. Electronically authenticated by: CARI TROTTER Date: 10/28/2023 17:[address] 10/28/23 16:22 IMPRESSION: No acute intracranial pathology. Electronically authenticated by: EJ CRAWFORD Date: 10/28/2023 16:34 Chest X-Ray 10/28/23 16:34 IMPRESSION: No acute infiltrate or evidence of cardiac decompensation. Electronically authenticated by: PORTER PANDYA Date: 10/28/2023 16:43 Head CTA 10/28/23 16:34 IMPRESSION: 1. No evidence of proximal large vessel occlusion, flow-limiting intracranial stenosis or aneurysm. Electronically authenticated by: CARI TROTTER Date: 10/28/2023 17:10 Discharge Plan Discharge Stand Alone Forms: Portal Instructions Chief Complaint: Weakness Clinical Impression: Altered mental status, Generalized weakness Patient Disposition: Home, Self-Care Time of Disposition Decision: 19:53 Condition: Good Mode of Transportation: Private Vehicle Prescriptions / Home Meds: No Action allopurinol 300 mg tablet 300 mg PO QAM Rx Instructions: 300 MG AM AND 100 MG PM lisinopril 20 mg tablet 20 mg PO .QD pantoprazole 40 mg tablet,delayed release (DR/EC) 40 mg PO Q12H gabapentin 300 mg capsule 300 mg PO BID diclofenac sodium 75 mg tablet,delayed release (DR/EC) 75 mg PO BID hydrochlorothiazide 25 mg tablet 25 mg PO QAM sertraline 50 mg tablet 50 mg PO DAILY ferrous fumarate 325 mg (106 mg iron) tablet 325 mg PO DAILY allopurinol 100 mg tablet 100 mg PO QPM amlodipine 10 mg tablet 10 mg PO DAILY Print Language: South Korean Instructions: Weakness (ED), Altered Mental Status (ED) Additional Instructions: Follow-up with PCP Referrals: MICHAEL MONTGOMERY [Primary Care Provider] - 1 week
--- NOTE | 2023-10-28 16:22 | CT_ITS ---
The [address] [address] Patient Name: ROSARIO CROUCH MRN: [id number] date: 1975 Sex: M Assigned Patient Location: ER Current Patient Location: ER Accession/Order Number: [id number] Exam Date: 10/28/2023 16:15 Report Date: 10/28/2023 16:34 At the request of: RAYMOND HOBSON Procedure: CT stroke head/brain wo con EXAMINATION: CT stroke head/brain wo con TECHNIQUE: Axial CT images were obtained through the brain. Sagittal and coronal reformatted images were also obtained. Dose reduction techniques were achieved by using automated exposure control and/or adjustment of mA and/or kV according to patient size and/or use of iterative reconstruction technique. HISTORY: AMS COMPARISON: None. FINDINGS: Intracranial Bleed: No evidence for acute intracranial bleed. Intracranial Mass: No evidence for mass lesion. No mass effect or midline shift. Extra-axial spaces: The ventricular system is normal caliber. White/Kang Matter: No acute cortical infarct. No significant white matter abnormality. Skull/Scalp: No evidence for skull fracture or lesion. Orbits and sinuses: The orbits appear unremarkable. The visualized paranasal sinuses are clear. CT/CT stroke head/brain wo con IMPRESSION: No acute intracranial pathology. Electronically authenticated by: EJ CRAWFORD Date: 10/28/2023 16:34
[2023-10-28 16:26] LABS: Ammonia 26 umol/L (11-32)
[2023-10-28 16:33] LABS: Lactate/Lactic Acid 1.2 mmol/L (0.4-2.0)
--- NOTE | 2023-10-28 16:34 | XR_ITS ---
The [address] [address] Patient Name: ROSARIO CROUCH MRN: [id number] date: 1975 Sex: M Assigned Patient Location: ER Current Patient Location: ER Accession/Order Number: [id number] Exam Date: 10/28/2023 16:15 Report Date: 10/28/2023 16:43 At the request of: RAYMOND HOBSON Procedure: XR chest 1V EXAM: XR chest 1V HISTORY: AMS COMPARISON: None TECHNIQUE: AP upright portable chest x-ray FINDINGS: The heart is not enlarged and the vasculature is not distended. No acute infiltrate, effusion or pneumothorax is identified. The osseous structures are grossly intact. XR/XR chest 1V IMPRESSION: No acute infiltrate or evidence of cardiac decompensation. Electronically authenticated by: PORTER PANDYA Date: 10/28/2023 16:43
--- NOTE | 2023-10-28 16:34 | CT_ITS ---
The [address] [address] Patient Name: ROSARIO CROUCH MRN: [id number] date: 1975 Sex: M Assigned Patient Location: ER Current Patient Location: ER Accession/Order Number: [id number] Exam Date: 10/28/2023 16:15 Report Date: 10/28/2023 17:10 At the request of: RAYMOND HOBSON Procedure: CT angio head AMS, neck pain HISTORY: AMS, neck pain COMPARISON: None. TECHNIQUE: Overlapping thin sections were obtained during a bolus of IV contrast from the upper neck through the upper cerebrum. Reconstruction of the source data set includes multiplanar 2D in the bilateral oblique planes, and 3D sagittal and coronal thin slab MIP series. So[employer] images have been stored on PACS. One of the following dose optimization techniques was utilized in the performance of this exam: Automated exposure control; adjustment of the mA and/or kV according to the patient's size; or use of an iterative reconstruction technique. Specific details can be referenced in the facility's radiology CT exam operational policy. FINDINGS: Angiographic findings: Internal carotids: Negative. Vertebrobasilar: Negative. Orange of Lemus: Negative. ESTEFANY circulation: Negative. MCA circulation: Negative. REHAB DEPARTMENT MANAGER circulation: Negative. Additional non-angiographic findings: None significant CT/CT angio head IMPRESSION: 1. No evidence of proximal large vessel occlusion, flow-limiting intracranial stenosis or aneurysm. Electronically authenticated by: CARI TROTTER Date: 10/28/2023 17:10
[2023-10-28 16:36] LABS: INR 0.96; Prothrombin Time 10.2 sec (9.0-11.6)
[2023-10-28 16:39] LABS: Alanine Aminotransferase 36 U/L (16-63); Albumin Level 3.6 g/dL (3.4-5.0); Alkaline Phosphatase 103 U/L (46-116); Anion Gap 8.6; Aspartate Amino Transferase 21 U/L (15-37); BUN Creatinine Ratio 15.5; Bilirubin Total 0.3 mg/dL (0.2-1.0); Calcium 8.7 mg/dL (8.5-10.1); Carbon Dioxide 27.6 mmol/L (21.0-32.0); Chloride 102 mmol/L (98-107); Estimated GFR (African America >60 (>=60); Estimated GFR (Non-African Ame >60 (>=60); Ethanol <3 mg/dL; Globulin 3.5 g/dL; Glucose 109 mg/dL (74-106); Potassium 3.2 mmol/L (3.5-5.1); Sodium 135 mmol/L (136-145); Total Protein 7.1 g/dL (6.4-8.2)
[2023-10-28 16:49] LABS: Glucometer 89 mg/dL (74-106)
[2023-10-28] MEDS: 0.9 % SODIUM CHLORIDE 1,000 ML 999 ML IV (17:22)
[2023-10-28 19:14] LABS: Bilirubin Urine NEGATIVE (NEGATIVE); Blood Urine NEGATIVE (NEGATIVE); Clarity Urine CLEAR (CLEAR); Color Urine LT. YELLOW (YELLOW); Glucose Urine UA NEGATIVE (NEGATIVE); Ketones Urine NEGATIVE (NEGATIVE); Leukocyte Esterase Urine NEGATIVE (NEGATIVE); Nitrite Urine NEGATIVE (NEGATIVE); Protein Urine NEGATIVE (NEG/TRACE); pH Urine 6.5 (5.0-9.0)
[2023-10-28 19:17] LABS: Urine Microscopic Indicated NO
[2023-10-28 19:25] LABS: Amphetamine Screen Urine NEGATIVE (NEGATIVE); Barbiturates Screen Urine NEGATIVE (NEGATIVE); Benzodiazepines Screen Urine NEGATIVE (NEGATIVE); Buprenorphine Screen Urine NEGATIVE (NEGATIVE); Cannabinoid Screen Urine POSITIVE (NEGATIVE); Cocaine Screen Urine NEGATIVE (NEGATIVE); Methadone Screen Urine NEGATIVE (NEGATIVE); Methamphetamines Screen Urine NEGATIVE (NEGATIVE); Opiate Screen Urine NEGATIVE (NEGATIVE); Oxycodone Screen Urine NEGATIVE (NEGATIVE); Phencyclidine Screen Urine NEGATIVE (NEGATIVE); Tricyclic Antidepressant Urine NEGATIVE (NEGATIVE)
== END 2023-10-28 20:02 | disposition home or self-care (01) ==
PROVIDERS: Student in an Organized Health Care Education/Training Program; Emergency Provider Emergency Medicine; PCP Nurse Practitioner Family
DX: R41.82 Altered mental status, unspecified (principal); R53.1 Weakness; F31.9 Bipolar disorder, unspecified; F17.210 Nicotine dependence, cigarettes, uncomplicated; F12.90 Cannabis use, unspecified, uncomplicated; Z79.899 Other long term (current) drug therapy
CPT/HCPCS: 36415; 36416; 70450; 70496; 70498; 71045; 80053; 80307; 80320; 81003; 82140; 82948; 83605; 84484; 85025; 85610; 93005; 96360; 99285; Q9967

== ENCOUNTER 2024-01-10 07:46 | Outpatient (RCR) | payer BC, SELFPAY | END 2024-01-25 23:59 | disposition home or self-care (01) | LOC: HEMC 07:46 | PROVIDERS: PCP Nurse Practitioner Family; Visit Provider Internal Medicine Hematology & Oncology | DX: R59.1 Generalized enlarged lymph nodes (principal); C16.9 Malignant neoplasm of stomach, unspecified; Z80.9 Family history of malignant neoplasm, unspecified | CPT/HCPCS: G0463 ==

== ENCOUNTER 2024-01-31 07:20 | Outpatient (RCR) | payer BC, SELFPAY | END 2024-02-25 23:59 | disposition home or self-care (01) | LOC: HEMC 07:20 | PROVIDERS: PCP Nurse Practitioner Family; Visit Provider Internal Medicine Hematology & Oncology | DX: R59.1 Generalized enlarged lymph nodes (principal); Z85.09 Personal history of malignant neoplasm of other digestive organs | CPT/HCPCS: G0463 ==

== ENCOUNTER 2025-03-06 10:16 | Outpatient (OUT) | payer BC, SELFPAY ==
--- NOTE | 2025-03-06 10:22 | XR_ITS ---
The [place] [id number] Patient Name: ROSARIO CROUCH MRN: [id number] date: 1975 Sex: M Assigned Patient Location: [facility] Current Patient Location: [facility] Accession/Order Number: [id number] Exam Date: 03/06/2025 10:32 Report Date: 03/06/2025 11:12 At the request of: MICHAEL MONTGOMERY Procedure: XR foot LT min 3V LEFT FOOT - 3 views CLINICAL DATA: Pain and lump at the first metatarsal for the past day after dropping a 2 x 4 on foot. COMPARISON: None AP, lateral and oblique views were obtained. A marker was placed at the site of clinical concern. There is no acute fracture or dislocation. Minor periosteal thickening is seen at the fourth metatarsal. Calcaneal spurs are seen. There are no significant soft tissue abnormalities. XR/XR foot LT min 3V IMPRESSION: NO ACUTE BONY INJURY. Impression dictated by: Leola Byrne M.D. 03/06/2025 11:12 AM Dictation Location: [employer] Electronically authenticated by: [id number] Y Date: 03/06/2025 11:12
--- OUTSIDE RECORDS SUMMARY | 2025-03-06 10:24 | XMS_ITS | CCD ---
Author Organization [facility] Care Team Providers Care Adolescent Counselor Name Role Phone HOUSE, DR TRAN Primary Care Unavailable GRACY, DR ANDERSON Admitting Unavailable OCEAN VIEW, DR YARELI Navarro Consulting Unavailable DUBOSE, DR ANDERSON Attending Unavailable DUBOSE, DR ANDERSON Consulting Unavailable HOUSE, DR TRAN Admitting Unavailable HOUSE, DR TRAN Attending Unavailable HOUSE, DR TRAN Consulting Unavailable HOUSE, DR TRAN Primary Care Unavailable HOUSE, DR TRAN Primary Care Unavailable HOUSE, DR TRAN Admitting Unavailable HOUSE, DR TRAN Attending Unavailable HOUSE, DR TRAN Consulting Unavailable NONE, XXXX Primary Care Physician Unavailab Lowell Balderas Attending Unavailable Lety, Lowell Admitting Unavailable JOE, SABINA Shepard Referring Unavailable HOUSE, MARC Gunn Primary Care Unavailable HOUSE, MARC P Referring Unavailable HOUSE, MARC P Primary Care Unavailable HOUSE, MARC P Referring Unavailable HOUSE, MARC P Primary Care Unavailable HOUSE, MARC P Referring Unavailable HOUSE, MARC P Primary Care Unavailable HOUSE, MRAC P Referring Unavailable HOUSE, MARC P Primary Care Unavailable LEX VARGAS Attending Unavailable LETY, LOWELL Referring Unavailable Allergies Allergy Classification Reported Allergen(s) Allergy Type Date of Onset Reaction(s) Facility (3 sources) Penicillins; Translations: [PENICILLINS] Drug allergy (disorder) 08-27-2014 [facility] Repository Problems Problem Classification Problem Date Documented [...] joints of left foot] Onset: 10-04-2023 Episodic Residual codes; unclassified (1 source) Pain, unspecified; Translations: [Pain, unspecified] Onset: 10-29-2023 Episodic Rheumatoid arthritis and related disease (1 source) Inflammatory polyarthropathy; Translations: [INFLAMMATORY POLYARTHROPATHY] Onset: 03-07-2022 Chronic Results Test Name Value Interpretation Reference Range Facil ity BODY FLUID CELL COUNTon 05-[address] 2418 /uL Normal [facility] Comment on above: Order Comment: Synov ial Fluid Reference Ranges - WBC/TNC: 0-150/uL , Neutrophils: <25%. Performed By: #### B FCT #### [facility] ([facility]) [address] [place] [address] 69 /uL Normal [facility] Comment on above: Order Comment: Synov ial Fluid Reference Ranges - WBC/TNC: 0-150/uL , Neutrophils: <25%. Performed By: #### B FCT #### [facility] ([facility]) [address] [place] [address] VIR PM FLUID CLARITY Cloudy Normal [facility] Comment on above: Order Comment: Synov ial Fluid Reference Ranges - WBC/TNC: 0-150/uL , Neutrophils: <25%. Performed By: #### B FCT #### [facility] ([facility]) [address] [place] [address] VIR PM FLUID COLOR Yellow Normal [facility] Comment on above: Order Comment: Synov ial Fluid Reference Ranges - WBC/TNC: 0-150/uL , Neutrophils: <25%. Performed By: #### B FCT #### [facility] ([facility]) [address] [place] [address] VIR BODY FLUID CRYSTALon 025 FLUID CRYSTALS Negative joint crystal examination for monosodium urate, calcium pyrophosphate dihydrate or other crystals. Normal Negative joint crystal examination for monosodium urate, calcium pyrophosphate dihydrate or other crystals. [facility] Comment on above: Performed By: #### C ILENE #### [facility] ([facility]) [address] [place] [address] VIR BODY FLUID CULTUREon 025 BODY FLUID CULTURE BODY FLUID CULTURE FLC BODY FLUID CULTURE Cancelled Normal [facility] Comment on above: Order Comment: Cultu re can not be run due to heparin contamination. REFLEXED BODY FLUID CELL COU NT DIFFERENTIALon 10-25-2024 FLUID EOSINOPHIL RELATIVE PERCENT BY MANUAL COUNT 2 % Normal [facility] Comment on above: Performed By: #### B FCT1 #### [facility] ([facility]) [address] [place] [address] VIR FLUID LYMPHOCYTE RELATIVE PERCENT BY MANUAL COUNT 25 % Normal [facility] Comment on above: Performed By: #### B FCT1 #### [facility] ([facility]) [address] [place] [address] VIR FLUID MACROPHAGE RELATIVE PERCENT BY MANUAL COUNT 53 % Normal [facility] Comment on above: Performed By: #### B FCT1 #### [facility] ([facility]) [address] [place] [address] VIR FLUID NEUTROPHILS RELATIVE PERCENT BY MANUAL COUNT 19 % Normal [facility] Comment on above: Performed By: #### B FCT1 #### [facility] ([facility]) [address] [place] [address] VIR FLUID SYNOVIOCYTES RELATIVE PERCENT BY MANUAL COUNT 1 % Normal [facility] Comment on above: Performed By: #### B FCT1 #### [facility] ([facility]) [address] [place] [address] VIR TOTAL CELLS COUNTED 100 % Normal [facility] Comment on above: Performed By: #### B FCT1 #### [facility] ([facility]) [address] [place] [address] VIR XR ANKLE LT MIN 3 VWSon 04-0 XR ANKLE LT MIN 3 VWS XR ANKLE LT MIN 3 VWS Left ankle: HISTORY: Ankle pain. 3 views left ankle were obtained. Calcaneal spurring noted. There is no acute osseous abnormality. No fracture appreciated. IMPRESSION: Calcaneal spurring Finalized by Terrance Vazquez MD on 10/04/2023 2:41 PM Normal [facility] XR FOOT LT MIN 3 VWSon [...] Mclain MD on 10/04/2023 2:55 PM Normal [facility] Consultation/Specialist Note on 08-08-2023 Consultation/Special ist Note [id number] #1.00OTGTIFF [facility] CHEMISTRYOrdered By: SYSTEM SYSTEM on 07-04-2023 Total CK 143 [iU]/d Normal 14 - 261 Int._Unit/L Remisol Chem CKon 07-04-2023 Total CK 143 Int._Unit/L Normal 14-[address] [facility] Comment on above: Performed By: #### 2 [id number] #### [facility] [address] [place] [address] Consent for Treatmenton Consent for Treatment [id number] #1.00TIFF Normal [facility] Physician Orderon 07-04-2023 Physician Order [id number] 8#1.00TIFF Normal [facility] MR BRAIN W AND WO CONTRAST ( [...] MR CERVICAL SPINE W AND WO C [facility] 06-01-2023 MR CERVICAL SPINE W AND [...] MRI KNEE RT WO CON EXAMINATION: MRI KNEE RT WO CON HISTORY: Tear of meniscus [...] YARELI MORALES Date: 2022-04-29 19:37 Normal [facility] LAST by IFAon 03-04-2022 Antinuclear Antibodies, IFA Negative Normal [facility] Comment on above: Result Comment: Nega tive <1:80 Borderline 1:80 Positive >1:80 ICAP nomenclature: AC-0 For more information about Hep-2 cell patterns use ANApatterns.org, the official website for the International Consensus on Antinuclear Antibody (LAST) Patterns (ICAP). Performed By: #### A NAIFA #### [facility] [address] [place] [address] Dr. Neo Harry CYCLIC CITRULLINATED PEPTIDE AB (CCP)on 03-04-2022 CCP Antibodies IgG/IgA 10 units Normal 0-19 [facility] Comment on above: Result Comment: Nega tive <20 Weak positive 20 - 39 Moderate positive 40 - 59 Strong positive >59 Performed By: #### C CPAB #### [facility] [address] [place] [address] Dr. Neo Harry LYME DISEASE AB EIA W REFLEX on 03-03-2022 Lyme Total Antibody,EIA Negative Normal Negative [facility] Comment on above: Result Comment: Lyme Antibody Negative No laboratory evidence of infection with B. burgdorferi (Lyme disease). Negative results may occur in patients recently infected (less than or equal to 14 days) with B. burgdorferi. If recent infection is suspected, repeat testing on a new sample collected in 7 to 14 days is recommended. Performed By: #### C BC #### [facility] [address] [place] [address] Dr. Neo Harry RHEUMATOID FACTORon 03-03-20 RA Latex Turbid. <10.0 Normal <14.0 [facility] Comment on above: Performed By: #### R F #### [facility] [address] [place] [address] Dr. Neo Harry SED RATE WESTERGRENon 2021 SED RATE 5 mm/hr Normal <=15 [facility] Comment on above: Performed By: #### S EDR #### [facility] [address] [place] [address] Dr. Neo Harry URIC ACID SERUMon 03-02-2022 Urate [Mass/Vol] 5.1 mg/dL Normal 3.5-7.2 [facility] Comment on above: Performed By: #### U YOON #### [facility] [address] [place] [address] Dr. Neo Harry CYCLIC CITRULLINATED PEPTIDE AB (CCP)on 09-29-2021 CCP Antibodies IgG/IgA 8 units Normal 0-19 [facility] Comment on above: Result Comment: Nega tive <20 Weak positive 20 - 39 Moderate positive 40 - 59 Strong positive >59 Performed By: #### C CPAB #### [facility] [address] [place] [address] Dr. Neo Harry LAST by IFAon 09-26-2021 Antinuclear Antibodies, IFA Negative Normal [facility] Comment on above: Result Comment: Nega tive <1:80 Borderline 1:80 Positive >1:80 ICAP nomenclature: AC-0 For more information about Hep-2 cell patterns use ANApatterns.org, the official website for the International Consensus on Antinuclear Antibody (LAST) Patterns (ICAP). Performed By: #### C BC #### [facility] [address] [place] [address] Dr. Neo Harry RHEUMATOID FACTORon 09-27-19 22 RA Latex Turbid. <10.0 Normal <14.0 [facility] Comment on above: Performed By: #### R F #### [facility] [address] [address] [address] Neo Harry CBC AUTO DIFFon 09-25-2021 BASO # 0.1 103/ul Normal 0.0-0.1 [facility] Comment on above: Performed By: #### C BC #### [facility] [address] [address] [address] Neo Harry Basophils/100 WBC (Bld) 0.8 % Normal 0.2-2.0 [facility] Comment on above: Performed By: #### C BC #### [facility] [address] [address] [address] Neo Harry EO # 0.3 103/ul Normal 0.0-0.7 [facility] Comment on above: Performed By: #### C BC #### [facility] [address] [place] [address] Dr. Neo Harry Eosinophils/100 WBC (Bld) 4.6 % Normal 0.9-7.0 [facility] Comment on above: Performed By: #### C BC #### [facility] [address] [place] [address] Dr. Neo Harry Erythrocyte distribution width (RBC) [Ratio] 13.5 % Normal 11.0-15.0 [facility] Comment on above: Performed By: #### C BC #### [facility] [address] [place] [address] Dr. Neo Harry Hematocrit (Bld) [Volume fraction] 43.7 % Normal 42.0-54.0 [facility] Comment on above: Performed By: #### C BC #### [facility] [address] [place] [address] Dr. Neo Harry Hemoglobin (Bld) [Mass/Vol] 14.5 g/dL Normal 14.0-18.0 [facility] Comment on above: Performed By: #### C BC #### [facility] [address] [place] [address] Dr. Neo Harry IG # 0.04 10e3/ul Critically high 0.00-0.03 [facility] Comment on above: Performed By: #### C BC #### [facility] [address] [place] [address] Dr. Neo Harry IG % 0.5 % Normal 0.0-0.5 [facility] Comment on above: Performed By: #### C BC #### [facility] [address] [place] [address] Dr. Neo Harry LYMPH # 2.0 103/ul Normal 1.2-3.8 [facility] Comment on above: Performed By: #### C BC #### [facility] [address] [place] [address] Dr. Neo Harry Lymphocytes/100 WBC (Bld) 27.1 % Normal 20.5-60.0 [facility] Comment on above: Performed By: #### C BC #### [facility] [address] [place] [address] Dr. Neo Harry MANUAL DIFF REQ NO Normal [facility] Comment on above: Performed By: #### C BC #### [facility] [address] [place] [address] Dr. Neo Harry MCH (RBC) [Entitic mass] 30.5 pg Normal 25.9-34.0 [facility] Comment on above: Performed By: #### C BC #### [facility] [address] [place] [address] Dr. Neo Harry MCHC (RBC) [Mass/Vol] 33.2 g/dL Normal 29.9-35.2 [facility] Comment on above: Performed By: #### C BC #### [facility] [address] [place] [address] Dr. Neo Harry MCV (RBC) [Entitic vol] 92.0 fL Normal 80.0-94.0 [facility] Comment on above: Performed By: #### C BC #### [facility] [address] [place] [address] Dr. Neo Harry MONO # 0.5 103/ul Normal 0.3-0.8 [facility] Comment on above: Performed By: #### C BC #### [facility] [address] [place] [address] Dr. Neo Harry Monocytes/100 WBC (Bld) 6.7 % Normal 1.7-12.0 [facility] Comment on above: Performed By: #### C BC #### [facility] [address] [place] [address] Dr. Neo Harry NEUT # 4.4 103/ul Normal 1.4-6.5 [facility] Comment on above: Performed By: #### C BC #### [facility] [address] [place] [address] Dr. Neo Harry Neutrophils/100 WBC (Bld) 60.3 % Normal 43.0-75.0 [facility] Comment on above: Performed By: #### C BC #### [facility] [address] [place] [address] Dr. Neo Harry Platelet mean volume (Bld) [Entitic vol] 9.7 fL Normal 9.5-13.5 [facility] Comment on above: Performed By: #### C BC #### [facility] [address] [place] [address] Dr. Neo Harry PLT 209 103/ul Normal 150-450 [facility] Comment on above: Performed By: #### C BC #### [facility] [address] [place] [address] Dr. Neo Harry RBC 4.75 106/ul Normal 4.70-6.10 [facility] Comment on above: Performed By: #### C BC #### [facility] [address] [place] [address] Dr. Neo Harry WBC 7.4 103/ul Normal 4.0-11.0 [facility] Comment on above: Performed By: #### C BC #### [facility] [address] [place] [address] Dr. Neo Harry SED RATE WESTERGRENon 2021 SED RATE 4 mm/hr Normal <=15 [facility] Comment on above: Performed By: #### S EDR #### [facility] [address] [place] [address] Dr. Neo Harry URIC ACID SERUMon 09-25-2021 Urate [Mass/Vol] 7.5 mg/dL Normal 3.5-8.5 [facility] Comment on above: Performed By: #### U YOON #### [facility] [id number] Neo Harry Encounters Encounter Date Encounter Type Care Provider Facility Start: 11-28-2023 End: 11-28-2023 ambulatory LEX VARGAS Not Available Start: 10-29-2023 ambulatory MARC ERNEE [facility] Start: 10-04-2023 End: 10-08-2023 ambulatory SABINA DIAZ [facility] Start: 07-04-2023 End: 07-05-2023 ambulatory Lowell Davidson [place] [place]: 07-04-2023 End: 07-04-2023 Patient encounter procedure Lowell Davidson [facility] Start: 06-01-2023 End: 06-01-2023 ambulatory LOWELL DAVIDSON Not Available Start: 04-29-2022 End: 04-30-[address] MARC RENEE Facility:[facility] Start: 03-02-2022 End: 03-03-[address] MARC RENEE Facility:[facility] Start: 09-25-2021 End: 09-26-[address] MARC RENEE Facility:[facility] Payers Date Payer Category Payer Unknown [id number] 2.16.84 [id number] 1975 Unknown [id number] 1975 Unknown [id number] .16.84 [id number] 1975 Unknown [id number] 2.16.8 [id number] 1975 Unknown [id number] 2.16.8 [id number] 1975 Unknown [id number] 2.16.8 [id number] 1975 Unknown [id number] 2.16.8 [id number] 1975 Unknown [id number] 2.16.8 [id number] 1975 Unknown [id number] 2.16.84 [id number] 1975 Unknown [id number] 1975 Unknown [id number] 1961 Unknown [id number] Social History Date Type Detail Facility Tobacco smoking status No Smoking Status Entered [facility] Sex Assigned At Male [facility] Evaluation + Plan note 07-04-2023 Note Date & Type Note Facility 07-04-2023 Evaluation + Plan note Diagnostic Tests PendingHeavy Metal Prof II 07/04/23Lyme Antibodies w/rflx to IgG/IgM 07/04/23Copper Level 07/04/23Methylmalonic Acid 07/04/23 [facility] Hospital course Narrative Note Date & Type Note Facility Hospital course Narrative No data available for this section [facility] Hospital Discharge instructions Note Date & Type Note Facility Hospital Discharge instructions No data available for this section [facility] Progress note Note Date & Type Note Facility Progress note No data available for this section [facility] Summary Purpose Family History No Family History Records Found No data available [...] content) DATE CREATED AUTHOR 07/27/2022 [facility] DATE CREATED AUTHOR AUTHOR'S ORGANIZ ATION 07/05/2023 [facility] DATE CREATED AUTHOR AUTHOR'S ORGANIZ ATION [facility] DATE CREATED AUTHOR AUTHOR'S ORGANIZ ATION 10/09/2023 [facility] DATE CREATED AUTHOR AUTHOR'S ORGANIZ ATION 11/05/2023 [facility] DATE CREATED AUTHOR AUTHOR'S ORGANIZ ATION 11/29/2023 [facility] DATE CREATED AUTHOR AUTHOR'S ORGANIZ ATION 10/31/2024 [facility] FOR RECORDS PERTAINING TO PATIENTS WHO ARE [...] BE BASED ON THE PRIMARY CLINICAL RECORDS. [facility] [employer] provides no warranty or guarantee of the accuracy or completeness of information in this document.
== END 2025-03-06 10:17 | disposition home or self-care (01) ==
LOC: RAD 10:17
PROVIDERS: PCP Nurse Practitioner Family; Visit Provider Nurse Practitioner Family
DX: M79.672 Pain in left foot (principal)
CPT/HCPCS: 73630